=== PATIENT | male | born 1960 | race African-American/Black ===

== ENCOUNTER 2018-02-26 09:08 | Emergency (ER) | payer MEDICAID ==
[~2018-02-26] VITALS: Ht 177.8 cm; Wt 78.0 kg
[2018-02-26 09:10] VITALS: BP 163/74
== END 2018-02-26 13:48 | disposition left against medical advice (07) ==
LOC: ER 10:28
DX: Z53.21 Procedure and treatment not carried out due to patient leaving prior to being seen by health care provider (principal)